=== PATIENT | female | born 1960 ===

== ENCOUNTER 2024-11-06 18:28 | Outpatient (REF) | payer OTHER, SELFPAY ==
[2024-11-06 20:21] LABS: ALT 40 U/L (14-59); AST 34 U/L (15-37); Albumin 3.9 g/dL (3.4-5.0); Alkaline Phosphatase 129 U/L (46-116); Anion Gap 5.5 mmol/L (3-11); BUN 16 mg/dL (7-18); Bilirubin, Total 0.76 mg/dL (0.2-1.0); CO2 30.5 mmol/L (21.0-32.0); CREATININE 0.8 mg/dL (0.55-1.02); Calcium 9.6 mg/dL (8.5-10.1); Chloride 105 mmol/L (98-107); Estimated GFR 82.74 (mL/min/1.73m2); FREE T4 1.07 ng/dL (0.76-1.46); Glucose 98 mg/dL (74-106); Potassium 4.1 mmol/L (3.5-5.1); Sodium 141 mmol/L (136-145); TSH 1.52 uIU/mL (0.36-3.74); Total Protein 7.7 g/dL (6.4-8.2)
== END 2024-11-06 18:29 | disposition home or self-care (01) ==
LOC: NCHCN 18:28
PROVIDERS: Visit Provider Nurse Practitioner Family
DX: E03.9 Hypothyroidism, unspecified (principal)
CPT/HCPCS: 80053; 84439; 84443

== ENCOUNTER 2025-06-10 14:55 | Outpatient (REF) | payer OTHER, SELFPAY ==
--- NOTE | 2025-06-10 11:00 | PAPFT_PTH ---
PATIENT: Maya Hope LOC: [facility] U#:[id number] AGE/SX: 64/F ROOM: RE06/10/[address]: Laura Lucio : 1960 BED: DIS: 06/10/2025 SPEC #: [id number] RECD: 06/11/25 12:49 STATUS: MARLEY RELamin #: [id number] BEATRIZ: 06/10/25 11:[address] Cytology RECD BY: Nae Alonzo ENTERED: 06/11/25 12:49 SP TYPE: PAPFT OT DR: Unknown,Unknown Tissues: 1 - CX/ENDOCX FOR PAP SMEARS Procedures: PAP THIN PREP/[facility] Screening HPV DNA PROBE Comments: [id number] (HPV 16 & 18/45)
== END 2025-06-10 14:56 | disposition home or self-care (01) ==
LOC: LBN 14:55
PROVIDERS: Visit Provider Nurse Practitioner Family
DX: Z12.4 Encounter for screening for malignant neoplasm of cervix (principal); Z01.419 Encounter for gynecological examination (general) (routine) without abnormal findings
CPT/HCPCS: 88142; 87624